=== PATIENT | male | born 1970 | race American Indian/Alaskan Native ===

== ENCOUNTER 2019-01-22 15:59 | Emergency (ER) | payer OTHER ==
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
[2019-01-22 16:17] VITALS: BP 165/108
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
[2019-01-22] MEDS ORDERED: CYCLOBENZAPRINE 10 MG TAB PO ONE (19:40)
[2019-01-22] MEDS ORDERED: IBUPROFEN 600 MG TAB PO ONE (19:40)
[2019-01-22] MEDS ORDERED: oxyCODONE /ACETAMINOPHEN 5-325MG TAB PO ONE (19:40)
[2019-01-22] MEDS ORDERED: ONDANSETRON 4 MG ODT TAB PO ONE (19:44)
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
== END 2019-01-22 22:19 | disposition home or self-care (01) ==
LOC: ED 15:59
DX: S76.012A Strain of muscle, fascia and tendon of left hip, initial encounter (principal); M54.42 Lumbago with sciatica, left side; I11.0 Hypertensive heart disease with heart failure; I50.9 Heart failure, unspecified; F17.200 Nicotine dependence, unspecified, uncomplicated; V49.49XA Driver injured in collision with other motor vehicles in traffic accident, initial encounter; X58.XXXA Exposure to other specified factors, initial encounter; Y93.89 Activity, other specified; Y92.89 Other specified places as the place of occurrence of the external cause; Y99.8 Other external cause status
CPT/HCPCS: 72100; 72131; Q0162